=== PATIENT | male | born 1990 | race Caucasian/White ===

== ENCOUNTER 2017-01-13 07:32 | Emergency (ER) | payer MEDICAID ==
[~2017-01-13] VITALS: Ht 175.3 cm; Wt 68.0 kg
[~2017-01-13 07:32] MED LIST: VENTOLIN HFA18 GM INH
[2017-01-13] MEDS ORDERED: SUBOXONE 8 MG-1 EAC1 SL (07:46)
[2017-01-13] MEDS ORDERED: ZOLOFT100 MG PO (07:48)
[2017-01-13] MEDS ORDERED: BACTRIM DS TAB1 EACH PO (07:48)
== END 2017-01-13 09:00 | disposition left against medical advice (07) ==
LOC: ED 07:32
DX: F11.90 Opioid use, unspecified, uncomplicated (principal); F15.90 Other stimulant use, unspecified, uncomplicated; J45.909 Unspecified asthma, uncomplicated; F41.9 Anxiety disorder, unspecified; F17.200 Nicotine dependence, unspecified, uncomplicated; Z79.899 Other long term (current) drug therapy
CPT/HCPCS: 80053; 80176; 81001; 85025; 87088; 99284; G0480; J7030